=== PATIENT | female | born 1970 ===

== ENCOUNTER 2017-04-07 05:40 | Day surgery (SDC) | payer OTHER | END 2017-04-07 10:50 | disposition home or self-care (01) | LOC: AMB-ENDOS 05:40 | DX: C18.7 Malignant neoplasm of sigmoid colon (principal); N80.5 Endometriosis of intestine; D12.5 Benign neoplasm of sigmoid colon ==

== ENCOUNTER 2017-05-07 07:00 | Day surgery (SDC) | payer OTHER ==
[~2017-05-07 07:00] MED LIST: PRINIVIL10 MG
== END 2017-05-08 08:00 | disposition home or self-care (01) ==
LOC: CIR.AMB 07:00 → EDSTATUS 10:30 → SURH 10:30 → O/R 15:04 → OB/GYN 15:04 → CIR.AMB 05-08 08:00 → OB/GYN 05-08 12:07 → O/R 05-08 12:07
DX: N80.1 Endometriosis of ovary (principal); N73.6 Female pelvic peritoneal adhesions (postinfective); N83.292 Other ovarian cyst, left side

== ENCOUNTER 2017-10-05 08:43 | Outpatient (CLI) | payer OTHER | END 2017-10-05 08:48 | disposition home or self-care (01) | LOC: SONOGRAMA 08:43 | DX: E04.1 Nontoxic single thyroid nodule (principal) ==